=== PATIENT | female | born 1990 | race Caucasian/White ===

== ENCOUNTER → 2017-08-02 | Outpatient (CLI) | payer OTHER ==
[2017-08-02 10:24] LABS: BASOPHILS ABSOLUTE AUTO 0.04 K/mm3 (0.00-0.23); BASOPHILS PERCENT AUTO 1 % (0-2); EOSINOPHILS ABSOLUTE AUTO 0.17 K/mm3 (0.00-0.68); EOSINOPHILS PERCENT AUTO 5 % (0-6); Hematocrit 42.6 % (33.0-51.0); Hemoglobin 14.3 g/dL (11.5-16.0); IMMATURE GRAN ABSOLUTE AUTO 0.01 K/mm3 (0.00-0.10); IMMATURE GRAN PERCENT AUTO 0 % (0-1); LYMPHOCYTES ABSOLUTE AUTO 1.66 K/mm3 (0.84-5.20); LYMPHOCYTES PERCENT AUTO 45 % (21-46); MONOCYTES ABSOLUTE AUTO 0.33 K/mm3 (0.16-1.47); MONOCYTES PERCENT AUTO 9 % (4-13); Mean Corpuscular HGB 29.8 pg (26.0-34.0); Mean Corpuscular HGB Conc 33.6 g/dL (31.5-36.5); Mean Corpuscular Volume 89 fL (80-100); Mean Platelet Volume 10.9 fL (9.1-12.4); NEUTROPHILS ABSOLUTE AUTO 1.49 K/mm3 (1.96-9.15); NEUTROPHILS PERCENT AUTO 40 % (41-73); Platelet Count 182 K/mm3 (150-400); RDW Coefficient Variation 11.7 % (11.7-14.2); RDW Standard Deviation 37.6 fL (35.1-46.3)
[2017-08-02 10:40] LABS: Alanine Aminotransfer (ALT/SGP 23 U/L (12-78); Albumin, Blood 3.9 g/dL (3.4-5.0); Albumin/Globulin Ratio 1.3 (0.8-1.8); Alk Phos 60 U/L (50-136); Anion Gap 9 mmol/L (6-16); Aspartate Aminotrans (AST/SGOT 17 U/L (12-37); Bilirubin, Total 0.6 mg/dL (0.1-1.0); Blood Urea Nitrogen 15 mg/dL (8-24); Bun/Creatinine Ratio 20.2 (12.0-20.0); CO2, Blood 25 mmol/L (21-32); Calcium, Blood 8.4 mg/dL (8.5-10.1); Chloride, Blood 107 mmol/L (98-108); Creatinine, Blood 0.74 mg/dL (0.40-1.00); Globulin, Blood 3.1 g/dL (2.2-4.0); Glomerular Filtration Rate >60 (60-); Glucose, Blood 86 mg/dL (70-99); Potassium, Blood 4.3 mmol/L (3.5-5.5); Sodium, Blood 141 mmol/L (136-145)
== END ==
LOC: LAB 09:00 → LAB SHORT 09:00
PROVIDERS: Nurse Practitioner Family
DX: Z13.0 Encounter for screening for diseases of the blood and blood-forming organs and certain disorders involving the immune mechanism (principal); Z13.1 Encounter for screening for diabetes mellitus; Z13.29 Encounter for screening for other suspected endocrine disorder
CPT/HCPCS: 80053; 84443; 85025

== ENCOUNTER → 2018-12-14 | Outpatient (CLI) | payer BC ==
[2018-12-18 15:07] LABS: HPV 16 Negative (Negative); HPV 18 Negative (Negative); HPV OTHER HR TYPES Positive (Negative)
== END | disposition home or self-care (01) ==
LOC: LAB SHORT 10:16 → LAB 10:16
PROVIDERS: Nurse Practitioner Women's Health
DX: Z12.4 Encounter for screening for malignant neoplasm of cervix (principal); Z91.89 Other specified personal risk factors, not elsewhere classified
CPT/HCPCS: 87624; 87625; G0123

== ENCOUNTER 2021-04-19 20:25 | Emergency (ER) | payer OTHER, BC ==
[~2021-04-19] VITALS: Ht 167.6 cm; Wt 62.6 kg
[2021-04-19] MEDS ORDERED: KLONOPIN0.5 M6 PO (20:50)
[2021-04-19] MEDS ORDERED: AMOCLA875 PO (20:53)
== END 2021-04-19 21:00 | disposition home or self-care (01) ==
LOC: ER 20:25
DX: S71.151A Open bite, right thigh, initial encounter (principal); Z23 Encounter for immunization; W54.0XXA Bitten by dog, initial encounter
CPT/HCPCS: 90714; A9270

== ENCOUNTER 2022-09-24 01:30 | Emergency (ER) | payer OTHER, BC | END 2022-09-24 04:37 | disposition home or self-care (01) | LOC: ER 01:30 | DX: N83.201 Unspecified ovarian cyst, right side (principal) ==

== ENCOUNTER → 2023-05-26 | Outpatient (CLI) | payer OTHER ==
[~2023-05-26] MED LIST: AMOCLA875 PO; KLONOPIN0.5 M6 PO
[2023-05-26 19:15] LABS: Source, Urine Clean Catch
[2023-05-26 19:33] LABS: BASOPHILS ABSOLUTE AUTO 0.05 K/mm3 (0.00-0.23); BASOPHILS PERCENT AUTO 1 % (0-2); EOSINOPHILS ABSOLUTE AUTO 0.14 K/mm3 (0.00-0.68); EOSINOPHILS PERCENT AUTO 2 % (0-6); Hematocrit 40.1 % (33.0-51.0); Hemoglobin 13.8 g/dL (11.5-16.0); IMMATURE GRAN ABSOLUTE AUTO 0.04 K/mm3 (0.00-0.10); IMMATURE GRAN PERCENT AUTO 1 % (0-1); LYMPHOCYTES ABSOLUTE AUTO 1.87 K/mm3 (0.84-5.20); LYMPHOCYTES PERCENT AUTO 22 % (21-46); MONOCYTES ABSOLUTE AUTO 0.63 K/mm3 (0.16-1.47); MONOCYTES PERCENT AUTO 7 % (4-13); Mean Corpuscular HGB 30.5 pg (26.0-34.0); Mean Corpuscular HGB Conc 34.4 g/dL (31.5-36.5); Mean Corpuscular Volume 89 fL (80-100); Mean Platelet Volume 10.9 fL (9.1-12.4); NEUTROPHILS ABSOLUTE AUTO 5.76 K/mm3 (1.96-9.15); NEUTROPHILS PERCENT AUTO 68 % (41-73); Platelet Count 212 K/mm3 (150-400); RDW Coefficient Variation 11.9 % (11.7-14.2); RDW Standard Deviation 38.5 fL (35.1-46.3); Red Blood Cell Count 4.52 M/mm3 (3.80-5.20); White Blood Cell Count 8.49 K/mm3 (4.00-11.30)
[2023-05-26 19:38] LABS: Appearance, Urine Clear (Clear); Bilirubin, Urine Neg (Neg); Blood, Urine Neg (Neg); Color, Urine Yellow (P-Yellow); Glucose Qualitative, Urine Neg (Neg); Ketones, Urine Neg (Neg); Leukocyte Esterase, Urine Neg (Neg); Nitrite, Urine Neg (Neg); Protein, Urine Neg (Neg); Urobilinogen, Urine NORM (Normal)
[2023-05-29 11:15] LABS: HEPATITIS B SURFACE ANTIGEN Negative (Negative)
[2023-05-29 11:37] LABS: HEPATITIS C AB CIA INTERP Negative (Negative); HEPATITIS C ANTIBODY CIA INDEX <0.02 IV
[2023-05-29 12:39] LABS: HIV 1,2 COMBO ANTIGEN/ANTIBODY Negative (Negative)
== END ==
LOC: LAB 16:50 → LAB SHORT 16:50
PROVIDERS: Registered Nurse Community Health
DX: Z34.90 Encounter for supervision of normal pregnancy, unspecified, unspecified trimester (principal); Z3A.00 Weeks of gestation of pregnancy not specified
CPT/HCPCS: 81003; 84443; 84702; 86803; 87086; 87340; 87389

== ENCOUNTER → 2023-10-17 | Outpatient (CLI) | payer OTHER ==
[2023-10-17 14:25] LABS: Hematocrit 36.8 % (33.0-51.0); Hemoglobin 12.2 g/dL (11.5-16.0)
== END | disposition home or self-care (01) ==
LOC: LAB 12:56 → LAB SHORT 12:56
PROVIDERS: Registered Nurse Community Health
DX: Z34.93 Encounter for supervision of normal pregnancy, unspecified, third trimester (principal)
CPT/HCPCS: 82950; 85014; 85018

== ENCOUNTER → 2023-12-13 | Outpatient (CLI) | payer OTHER | END | disposition home or self-care (01) | LOC: LAB SHORT 10:29 → LAB 10:29 | DX: Z34.93 Encounter for supervision of normal pregnancy, unspecified, third trimester (principal) | CPT/HCPCS: 87081; 87150 ==

== ENCOUNTER 2024-01-17 06:53 | Inpatient (IN) | payer OTHER ==
[~2024-01-17] VITALS: Ht 170.2 cm; Wt 93.4 kg
[2024-01-17] VITALS (26 sets, daily range): BP systolic 106–144; BP diastolic 53–84
[2024-01-17] MEDS ORDERED: Misoprostol 200 MCG Tab PR PRN (07:25)
[2024-01-17] MEDS ORDERED: Acetaminophen 500 MG Tab PO PRN (07:25)
[2024-01-17] MEDS ORDERED: Lactated Ringer's 1,000 ML IV SCH ×3 (07:25)
[2024-01-17] MEDS ORDERED: Carboprost Tromethamine 250 MCG/ML 1ML Amp IM PRN (07:25)
[2024-01-17] MEDS ORDERED: Methylergonovine Maleate 0.2MG / ML 1ML Amp IM PRN (07:25)
[2024-01-17] MEDS ORDERED: Tranexamic Acid 1,000 MG in NS 100 ML IV SCH (07:25)
[2024-01-17] MEDS ORDERED: Lactated Ringer's 1,000 ML IV PRN (07:25)
[2024-01-17] MEDS ORDERED: ePHEDrine Sulfate 50 MG/ML 1ML Injection XX PRN (07:25)
[2024-01-17] MEDS ORDERED: OXYTOCIN/RINGER'S LACTATE 500 ML IV SCH (07:25)
[2024-01-17] MEDS ORDERED: FentaNYL 2mcg/ml-Bup 0.1% Epd 250 ML EPI PRN (07:25)
[2024-01-17] MEDS ORDERED: OXYTOCIN/RINGER'S LACTATE 500 ML IV PRN (07:25)
[2024-01-17] MEDS ORDERED: Ondansetron HCl 2 MG / ML 2ML Vial IV PRN (07:25)
[2024-01-17] MEDS ORDERED: Oxytocin 10 Unit / ML Vial IM PRN (07:25)
[2024-01-17] MEDS ORDERED: Misoprostol 200 MCG Tab BC PRN (07:25)
[2024-01-17] MEDS ORDERED: Calcium Carbonate 500 MG Tab Chew PO SCH ×2 (07:30→10:10)
[2024-01-17] MEDS ORDERED: PRENATAL TABLE1 EAC2 PO (07:50)
[2024-01-17] MEDS ORDERED: ACYC400 PO (07:50)
[2024-01-17 07:58] LABS: BASOPHILS ABSOLUTE AUTO 0.05 K/mm3 (0.00-0.23); BASOPHILS PERCENT AUTO 1 % (0-2); EOSINOPHILS ABSOLUTE AUTO 0.26 K/mm3 (0.00-0.68); EOSINOPHILS PERCENT AUTO 3 % (0-6); Hematocrit 36.2 % (33.0-51.0); Hemoglobin 12.4 g/dL (11.5-16.0); IMMATURE GRAN ABSOLUTE AUTO 0.22 K/mm3 (0.00-0.10); IMMATURE GRAN PERCENT AUTO 2 % (0-1); LYMPHOCYTES PERCENT AUTO 18 % (21-46); MONOCYTES ABSOLUTE AUTO 0.65 K/mm3 (0.16-1.47); MONOCYTES PERCENT AUTO 7 % (4-13); Mean Corpuscular HGB Conc 34.3 g/dL (31.5-36.5); Mean Corpuscular Volume 85 fL (80-100); Mean Platelet Volume 11.3 fL (9.1-12.4); NEUTROPHILS ABSOLUTE AUTO 6.75 K/mm3 (1.96-9.15); NEUTROPHILS PERCENT AUTO 70 % (41-73); Platelet Count 186 K/mm3 (150-400); RDW Coefficient Variation 13.8 % (11.7-14.2); RDW Standard Deviation 42.2 fL (35.1-46.3); Red Blood Cell Count 4.28 M/mm3 (3.80-5.20); White Blood Cell Count 9.63 K/mm3 (4.00-11.30)
[2024-01-17] MEDS ORDERED: FentaNYL Citrate 50 MCG/ML 2 ML Injection ONE ×2 (15:35→22:26)
[2024-01-17] MEDS ORDERED: FentaNYL Citrate 50 MCG/ML 2 ML Injection IV PRN (22:50)
[2024-01-18] VITALS (19 sets, daily range): BP systolic 112–161; BP diastolic 56–94
[2024-01-18] MEDS ORDERED: Azithromycin 500 MG in NS 250 ML IV SCH (03:25)
[2024-01-18] MEDS ORDERED: CeFAZolin Sodium 2,000 MG in NS 100 ML IV SCH (03:25)
[2024-01-18] MEDS ORDERED: Metoclopramide HCl 5MG / ML 2ML Vial IV PRN (03:25)
[2024-01-18] MEDS ORDERED: Citric Acid/Sodium Citrate 30 ML BTL PO PRN (03:25)
[2024-01-18] MEDS ORDERED: Lidocaine 2% 5 ML SDV ONE (04:05)
[2024-01-18] MEDS ORDERED: ePHEDrine Sulfate 50 MG/ML 1ML Injection ONE (04:22)
[2024-01-18] MEDS ORDERED: Phenylephrine HCl 100 MCG/ML-NS 10MLSYR (1MG/10ML) ONE (04:22)
[2024-01-18] MEDS ORDERED: Oxytocin 10 Unit / ML Vial ONE (04:29)
[2024-01-18] MEDS ORDERED: Ketorolac Tromethamine 30mg Vial ONE (04:52)
[2024-01-18] MEDS ORDERED: Misoprostol 200 MCG Tab PR PRN (05:00)
[2024-01-18] MEDS ORDERED: Metoclopramide HCl 10 MG Tab PO PRN (05:05)
[2024-01-18] MEDS ORDERED: Carboprost Tromethamine 250 MCG/ML 1ML Amp IM PRN (05:05)
[2024-01-18] MEDS ORDERED: Simethicone 80 MG Chew PO PRN (05:05)
[2024-01-18] MEDS ORDERED: DiphenhydrAMINE HCL 25 MG Cap PO PRN (05:05)
[2024-01-18] MEDS ORDERED: OXYTOCIN/RINGER'S LACTATE 500 ML IV SCH (05:10)
[2024-01-18] MEDS ORDERED: Promethazine HCl 25 MG Tab PO PRN (05:10)
[2024-01-18] MEDS ORDERED: OxyCODONE HCL 5 MG TAB PO PRN ×2 (05:10→05:15)
[2024-01-18] MEDS ORDERED: Acetaminophen 500 MG Tab PO PRN (05:10)
[2024-01-18] MEDS ORDERED: Rho(D) Immune Globulin 300 MCG / SYR IM ONE (05:10)
[2024-01-18] MEDS ORDERED: Methylergonovine Maleate 0.2 MG Tab PO PRN (05:10)
[2024-01-18] MEDS ORDERED: Magnesium Hydroxide Conc 10 ML UDC PO PRN (05:15)
[2024-01-18] MEDS ORDERED: Ondansetron HCl 2 MG / ML 2ML Vial IV PRN (05:15)
[2024-01-18] MEDS ORDERED: Lactated Ringer's 1,000 ML IV SCH (05:15)
[2024-01-18] MEDS ORDERED: Lanolin Cream TOP PRN (05:15)
[2024-01-18] MEDS ORDERED: Ketorolac Tromethamine 30mg Vial IV SCH (06:00)
[2024-01-18] MEDS ORDERED: Ibuprofen 400 MG Tab PO SCH (08:00)
[2024-01-18 09:00] LABS: BASOPHILS ABSOLUTE AUTO 0.05 K/mm3 (0.00-0.23); BASOPHILS PERCENT AUTO 0 % (0-2); EOSINOPHILS ABSOLUTE AUTO 0.01 K/mm3 (0.00-0.68); EOSINOPHILS PERCENT AUTO 0 % (0-6); Hemoglobin 11.6 g/dL (11.5-16.0); IMMATURE GRAN ABSOLUTE AUTO 0.18 K/mm3 (0.00-0.10); IMMATURE GRAN PERCENT AUTO 1 % (0-1); LYMPHOCYTES ABSOLUTE AUTO 1.15 K/mm3 (0.84-5.20); LYMPHOCYTES PERCENT AUTO 6 % (21-46); MONOCYTES ABSOLUTE AUTO 1.34 K/mm3 (0.16-1.47); MONOCYTES PERCENT AUTO 7 % (4-13); Mean Corpuscular HGB 29.1 pg (26.0-34.0); Mean Corpuscular HGB Conc 34.1 g/dL (31.5-36.5); Mean Corpuscular Volume 85 fL (80-100); Mean Platelet Volume 11.5 fL (9.1-12.4); NEUTROPHILS ABSOLUTE AUTO 15.67 K/mm3 (1.96-9.15); NEUTROPHILS PERCENT AUTO 85 % (41-73); Platelet Count 166 K/mm3 (150-400); RDW Coefficient Variation 13.9 % (11.7-14.2); RDW Standard Deviation 43.5 fL (35.1-46.3); Red Blood Cell Count 3.99 M/mm3 (3.80-5.20)
[2024-01-18] MEDS ORDERED: Docusate Sodium 100 MG Cap PO SCH (09:00)
[2024-01-18] MEDS ORDERED: Prenatal Vit/FE Fumarate/FA 1 Tab PO SCH (09:00)
[2024-01-18] MEDS ORDERED: Witch Hazel/Glycerin PADS TOP PRN (21:45)
[2024-01-19 00:16] VITALS: BP 119/67
[2024-01-19] MEDS ORDERED: Ketorolac Tromethamine 30mg Vial IV ONE (00:35)
[2024-01-19 04:26] VITALS: BP 110/58
[2024-01-19 09:42] VITALS: BP 116/58
[2024-01-19 12:19] VITALS: BP 120/66
[2024-01-19] MEDS ORDERED: IBUP800 PO (15:09)
[2024-01-19] MEDS ORDERED: Percocet 5-3251 EACH PO (15:10)
--- NOTE | 2024-01-19 18:33 | NUR ---
DISCHARGE DISCHARGE INSTRUCTIONS COMPLETED WITH PT AND . PACKET PRINTED AND GIVEN TO PT AND . ALL QUESTIONS AND CONCERNS ADDRESSED AND ANSWERED. PT LEFT AMBULATORY WITH AND IN [facility].
== END 2024-01-19 18:10 | disposition home or self-care (01) | DRG 787 ==
LOC: OBS 06:53 → BC 06:54 → OBS 07:14 → BC 07:15
PROVIDERS: Obstetrics & Gynecology; ADMIT Registered Nurse Community Health
PROC: 10D00Z1 Extraction of Products of Conception, Low, Open Approach (ICD-10-PCS; principal; 2024-01-17)
DX: O48.0 Post-term pregnancy (principal); O98.32 Other infections with a predominantly sexual mode of transmission complicating childbirth; O64.0XX0 Obstructed labor due to incomplete rotation of fetal head, not applicable or unspecified; A60.00 Herpesviral infection of urogenital system, unspecified; Z3A.41 41 weeks gestation of pregnancy; Z37.0 Single live birth
CPT/HCPCS: 36415; 51702; 85025; 86850; 86900; 86901; 86923; A9270; J0456; J0690; J1885; J2371; J2405; J2590; J2765; J3010; J7050; J7120

== ENCOUNTER 2025-01-21 01:52 | Emergency (ER) | payer BC ==
[~2025-01-21] VITALS: Ht 170.2 cm; Wt 70.3 kg
[~2025-01-21 01:52] MED LIST changes: +ACYC400 PO; +IBUP800 PO; +PRENATAL TABLE1 EAC2 PO; +Percocet 5-3251 EACH PO
[2025-01-21 02:40] LABS: BASOPHILS ABSOLUTE AUTO 0.06 K/mm3 (0.00-0.23); BASOPHILS PERCENT AUTO 1 % (0-2); EOSINOPHILS ABSOLUTE AUTO 0.27 K/mm3 (0.00-0.68); EOSINOPHILS PERCENT AUTO 4 % (0-6); Hematocrit 40.1 % (33.0-51.0); Hemoglobin 13.2 g/dL (11.5-16.0); IMMATURE GRAN ABSOLUTE AUTO 0.02 K/mm3 (0.00-0.10); IMMATURE GRAN PERCENT AUTO 0 % (0-1); LYMPHOCYTES ABSOLUTE AUTO 2.02 K/mm3 (0.84-5.20); LYMPHOCYTES PERCENT AUTO 28 % (21-46); MONOCYTES ABSOLUTE AUTO 0.57 K/mm3 (0.16-1.47); MONOCYTES PERCENT AUTO 8 % (4-13); Mean Corpuscular HGB Conc 32.9 g/dL (31.5-36.5); Mean Corpuscular Volume 92 fL (80-100); NEUTROPHILS ABSOLUTE AUTO 4.31 K/mm3 (1.96-9.15); NEUTROPHILS PERCENT AUTO 59 % (41-73); NRBC ABSOLUTE 0.00 K/mm3 (0.00-0.02); NRBC Auto 0.0 /100 WBC (0.0-0.2); Platelet Count 179 K/mm3 (150-400); RDW Coefficient Variation 12.0 % (11.7-14.2); RDW Standard Deviation 41.2 fL (35.1-46.3)
[2025-01-21 03:00] LABS: Alanine Aminotransfer (ALT/SGP 22.0 U/L (12-78); Albumin, Blood 3.6 g/dL (3.4-5.0); Albumin/Globulin Ratio 1.2 (0.8-1.8); Anion Gap 8.0 mmol/L (3-11); Aspartate Aminotrans (AST/SGOT 16.0 U/L (12-37); Bilirubin, Total 0.3 mg/dL (0.1-1.0); Blood Urea Nitrogen 16.0 mg/dL (8-24); CO2, Blood 25.0 mmol/L (21-32); Calcium, Blood 8.6 mg/dL (8.5-10.1); Chloride, Blood 109.0 mmol/L (98-108); Creatinine, Blood 0.61 mg/dL (0.40-1.00); Globulin, Blood 2.9 g/dL (2.2-4.0); Glucose, Blood 104.0 mg/dL (70-99); Potassium, Blood 3.4 mmol/L (3.5-5.5); Sodium, Blood 139.0 mmol/L (136-145); Total Protein, Blood 6.5 g/dL (6.4-8.2)
[2025-01-21] MEDS ORDERED: Ondansetron HCl 2 MG / ML 2ML Vial IV ONE (03:10)
[2025-01-21] MEDS ORDERED: Morphine Sulfate 4 MG/1 ML Injection IV ONE (03:10)
[2025-01-21 04:37] LABS: Source, Urine Clean Catch
[2025-01-21 05:09] LABS: Bilirubin, Urine Neg (Neg); Color, Urine Yellow (P-Yellow); Glucose Qualitative, Urine Neg (Neg); Ketones, Urine Neg (Neg); Leukocyte Esterase, Urine Neg (Neg); Protein, Urine 1+ (Neg); Specific Gravity, Urine 1.025 (1.003-1.022); Urobilinogen, Urine NORM (Normal)
[2025-01-21 05:30] VITALS: BP 112/65
== END 2025-01-21 05:58 | disposition home or self-care (01) ==
LOC: ER 01:52
PROVIDERS: Student in an Organized Health Care Education/Training Program
DX: R10.13 Epigastric pain (principal); R11.10 Vomiting, unspecified
CPT/HCPCS: 76705; 80053; 83690; 84703; 85025; 96374; 96375; 99284-25; J2270; J2405; J7120